=== PATIENT | female | born 1980 | race Hispanic/Latino ===

== ENCOUNTER 2025-06-13 21:37 | Emergency (ER) | payer BC ==
[2025-06-13] MEDS ORDERED: Gabapentin 100 MG CAP ONE (22:25)
== END 2025-06-13 23:16 | disposition home or self-care (01) ==
LOC: ERS 21:37
DX: M79.672 Pain in left foot (principal); I10 Essential (primary) hypertension; F17.290 Nicotine dependence, other tobacco product, uncomplicated; Z79.899 Other long term (current) drug therapy
CPT/HCPCS: 96372; 99283; J2270